=== PATIENT | female | born 1990 | race Hispanic/Latino ===

== ENCOUNTER 2018-05-16 12:43 | Emergency (ER) | payer BC ==
[2018-05-16] MEDS ORDERED: ONDANSETRON 4 MG/2 ML VIAL ONE (13:17)
[2018-05-16 13:33] LABS: Absolute Lymphocytes (CBC) 2.8 K/uL (0.7-4.9); Absolute Monocytes 0.6 K/uL (0.1-1.3); Absolute Neutrophil 5.8 K/uL (1.8-8.0); Basophils % 0.7 % (0-1.3); Eosinophils % 3.6 % (0-4.4); Hematocrit 36.2 % (36.0-45.0); Lymphocytes % 29.2 % (15.3-44.8); MCH 29.8 pg (27.0-35.0); MCV 88.5 fL (80-100); MPV 9.5 fL (7.6-11.3); Monocytes % 6.4 % (3.3-12.3); RBC Red Blood Cell Count 4.09 M/uL (3.86-4.86)
[2018-05-16 13:54] LABS: BUN Blood Urea Nitrogen 12 mg/dL (7-18); Bicarbonate 26 mmol/L (21-32); Glucose Level 95 mg/dL (74-106); Potassium 3.6 mmol/L (3.5-5.1); Sodium Level 138 mmol/L (136-145); Troponin (Emerg Dept Use Only) < 0.02 ng/mL (0.0-0.045)
--- NOTE | 2018-05-16 14:18 | RAD REPORT ---
EXAM DESCRIPTION: Andrewt Pa And Lat (2 Views)05/16/2018 1:40 pm CLINICAL HISTORY: CHEST PAIN COMPARISON: CHEST PA AND LAT 2 VIEW dated 08/07/2008 FINDINGS: The lungs appear clear of acute infiltrate. The heart is normal size IMPRESSION: No acute abnormalities displayed
[2018-05-16 15:02] LABS: Urine Blood NEGATIVE (NEG); Urine Glucose NEGATIVE (NEG); Urine Protein NEGATIVE (NEG); Urine Specific Gravity 1.015 (1.005-1.030)
--- NOTE | 2018-05-16 15:53 | EDPHYS ---
Physician Documentation [facility] Name: Jaycee Hong Age: 27 yrs Sex: Female : 1990 Arrival Date: 05/16/2018 Time: 12:46 Bed 14 Private MD: Rayshawn Chowdary ED Physician Ryan Gannon HPI: 05/16 14:44 This 27 yrs old Female presents to ER via Ambulatory with complaints of Cough. kb 14:44 The patient or guardian reports cough, that is intermittent, described as mild, with no kb sputum, difficulty breathing. Onset: The symptoms/episode began/occurred 5 day(s) ago. Severity of symptoms: At their worst the symptoms were mild, in the emergency department the symptoms are unchanged. Modifying factors: The symptoms are alleviated by nothing, the symptoms are aggravated by nothing. Associated signs and symptoms: Pertinent positives: chest pain, nausea, vomiting, Pertinent negatives: diarrhea, ear ache, fever, rhinorrhea, sore throat. The patient has not experienced similar symptoms in the past. The patient has not recently seen a physician. CAPACITOR TESTER: 12:59 LMP 04/14/2018 aa5 Historical: - Allergies: 12:58 No Known Allergies; aa5 - PMHx: 12:58 Seizures; aa5 - PSHx: 12:58 None; aa5 - Immunization history:: Adult Immunizations up to date. - Social history:: Smoking status: Patient/guardian denies using tobacco. - Ebola Screening: : No symptoms or risks identified at this time. ROS: 14:09 Constitutional: Negative for fever, chills, and weight loss, ENT: Negative for injury, kb pain, and discharge, Neck: Negative for injury, pain, and swelling, Back: Negative for injury and pain, : Negative for injury, bleeding, discharge, and swelling, MS/Extremity: Negative for injury and deformity, Skin: Negative for injury, rash, and discoloration, Neuro: Negative for headache, weakness, numbness, tingling, and seizure. 14:32 Cardiovascular: Positive for chest pain, Negative for edema, orthopnea, palpitations, kb paroxysmal nocturnal dyspnea. 14:32 Respiratory: Positive for cough, shortness of breath, Negative for dyspnea on exertion, hemoptysis, orthopnea, pleurisy, sputum production, wheezing. 15:09 Abdomen/GI: Positive for nausea and vomiting, Negative for abdominal pain, diarrhea, kb constipation, abdominal cramps, abdominal distension, anorexia. Exam: 14:41 Constitutional: This is a well developed, well nourished patient who is awake, alert, kb and in no acute distress. Head/Face: Normocephalic, atraumatic. ENT: Nares patent. No nasal discharge, no septal abnormalities noted. Tympanic membranes are normal and external auditory canals are clear. Oropharynx with no redness, swelling, or masses, exudates, or evidence of obstruction, uvula midline. Mucous membranes moist. Neck: Trachea midline, no thyromegaly or masses palpated, and no cervical lymphadenopathy. Supple, full range of motion without nuchal rigidity, or vertebral point tenderness. No Meningismus. Chest/axilla: Normal chest wall appearance and motion. Nontender with no deformity. No lesions are appreciated. Cardiovascular: Regular rate and rhythm with a normal S1 and S2. No gallops, murmurs, or rubs. Normal PMI, no JVD. No pulse deficits. Respiratory: Lungs have equal breath sounds bilaterally, clear to auscultation and percussion. No rales, rhonchi or wheezes noted. No increased work of breathing, no retractions or nasal flaring. Abdomen/GI: Soft, non-tender, with normal bowel sounds. No distension or tympany. No guarding or rebound. No evidence of tenderness throughout. Skin: Warm, dry with normal turgor. Normal color with no rashes, no lesions, and no evidence of cellulitis. MS/ Extremity: Pulses equal, no cyanosis. Neurovascular intact. Full, normal range of motion. Neuro: Awake and alert, GCS 15, oriented to person, place, time, and situation. Cranial nerves II-XII grossly intact. Motor strength 5/5 in all extremities. Sensory grossly intact. Cerebellar exam normal. Normal gait. Vital Signs: 12:58 BP 131 / 84; Pulse 85; Resp 16 S; Temp 98.6(TE); Pulse Ox 98% on R/A; Weight 86.18 kg aa5 (R); Height 5 ft. 5 in. (165.10 cm) (R); Pain 8/10; 13:30 BP 123 / 77; Pulse 84; Resp 18; Pulse Ox 98% on R/A; hj 14:36 BP 116 / 78; Pulse 68; Resp 18; Pulse Ox 99% on R/A; hj 15:30 BP 118 / 75; Pulse 75; Resp 18; Pulse Ox 99% on R/A; hj 16:14 BP 119 / 77; Pulse 76; Resp 18; Pulse Ox 100% on R/A; hj 12:58 Body Mass Index 31.62 (86.18 kg, 165.10 cm) aa5 MDM: 12:59 Patient medically screened. kb 14:44 Data reviewed: vital signs, nurses notes. Data interpreted: Pulse oximetry: on room air kb is 99 %. Interpretation: normal. Counseling: I had a detailed discussion with the patient and/or guardian regarding: the historical points, exam findings, and any diagnostic results supporting the discharge/admit diagnosis, lab results, radiology results, the need for outpatient follow up, a family practitioner, to return to the emergency department if symptoms worsen or persist or if there are any questions or concerns that arise at home. 05/16 13:00 Order name: CBC with Diff; Complete Time: 13:40 kb 05/16 13:00 Order name: Basic Metabolic Panel; Complete Time: 14:02 kb 05/16 13:00 Order name: Troponin (emerg Dept Use Only); Complete Time: 14:02 kb 05/16 14:28 Order name: Test, Serum; Complete Time: 15:52 hj 05/16 14:29 Order name: Urine Dipstick--Ancillary (enter results); Complete Time: 15:06 eb 05/16 14:29 Order name: Urine --Ancillary (enter results); Complete Time: 15:06 eb 05/16 14:45 Order name: D-Dimer; Complete Time: 15:52 kb 05/16 13:00 Order name: Chest Pa And Lat (2 Views) XRAY; Complete Time: 14:29 kb 05/16 13:00 Order name: EKG; Complete Time: 13:01 kb 05/16 13:00 Order name: EKG - Nurse/Tech; Complete Time: 13:32 kb 05/16 13:00 Order name: Urine Test (obtain specimen); Complete Time: 14:27 kb 05/16 13:00 Order name: Urine Dipstick-Ancillary (obtain specimen); Complete Time: 14:27 kb Administered Medications: 13:00 Drug: Zofran 4 mg Route: IVP; Site: left antecubital; 13:32 Follow up: Response: No adverse reaction hj Disposition: 05/16/18 15:52 Discharged to Home. Impression: Cough, Chest pain, unspecified. - Condition is Stable. - Medication Reconciliation Form, Thank You Letter, Antibiotic Education, Prescription Opioid Use form. - Follow up: Emergency Department; When: As needed; Reason: Worsening of condition. Follow up: Private Physician; When: 2 - 3 days; Reason: Recheck today's complaints, Continuance of care, Re-evaluation by your physician. Addendum: 05/20/2018 07:08 Co-signature as Attending Physician, Ryan Gannon MD I agree with the assessment and k dr plan of care. Signatures: Dispatcher [employer] EDMS Cornelia Mckoy, SUPERVISOR [employer]TING [employer]ING-C SUPERVISOR C[employer]TING [employer]ING-Ckb Ryan Gannon MD MD [facility] Barb Pitt RN RN aa5 Estrella Garay RN RN Luis Enrique Carter RN RN Corrections: (The following items were deleted from the chart) 05/16 14:32 14:09 Constitutional: Negative for fever, chills, and weight loss, kb kb 15:09 14:09 Constitutional: Negative for fever, chills, and weight loss, ENT: Negative for kb injury, pain, and discharge, Neck: Negative for injury, pain, and swelling, Abdomen/GI: Negative for abdominal pain, nausea, vomiting, diarrhea, and constipation, Back: Negative for injury and pain, : Negative for injury, bleeding, discharge, and swelling, MS/Extremity: Negative for injury and deformity, Skin: Negative for injury, rash, and discoloration, Neuro: Negative for headache, weakness, numbness, tingling, and seizure, kb 15:09 15:09 Abdomen/GI: Positive for nausea and vomiting, kb kb 15:10 14:44 Associated signs and symptoms: Pertinent positives: chest pain, Pertinent kb negatives: diarrhea, ear ache, fever, nausea, rhinorrhea, sore throat, vomiting, kb 16:32 15:52 05/16/2018 15:52 Discharged to Home. Impression: Cough; Chest pain, unspecified. hj Condition is Stable. Forms are Medication Reconciliation Form, Thank You Letter, Antibiotic Education, Prescription Opioid Use. Follow up: Emergency Department; When: As needed; Reason: Worsening of condition. Follow up: Private Physician; When: 2 - 3 days; Reason: Recheck today's complaints, Continuance of care, Re-evaluation by your physician. kb
--- NOTE | 2018-05-16 15:53 | ER ---
Nurse's Notes [facility] Name: Jaycee Hong Age: 27 yrs Sex: Female : 1990 Arrival Date: 05/16/2018 Time: 12:46 Bed 14 Private MD: Rayshawn Chowdary Diagnosis: Cough;Chest pain, unspecified Presentation: 05/16 12:56 Presenting complaint: Patient states: chest discomfort and SOB that began Thursday. Pt aa5 also reports cough that began this morning. Transition of care: patient was not received from another setting of care. Onset of symptoms was April 2018. Risk Assessment: Do you want to hurt yourself or someone else? Patient reports no desire to harm self or others. Initial Sepsis Screen: Does the patient meet any 2 criteria? No. Patient's initial sepsis screen is negative. Does the patient have a suspected source of infection? No. Patient's initial sepsis screen is negative. Care prior to arrival: None. 12:56 Method Of Arrival: Ambulatory aa5 12:56 Acuity: TELLO 3 aa5 Triage Assessment: 12:57 General: Appears in no apparent distress. uncomfortable, Behavior is calm, cooperative, hj appropriate for age. Pain: Complains of pain in chest Pain currently is 7 out of 10 on a pain scale. 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 - Social history:: Smoking status: Patient/guardian denies using tobacco. - Ebola Screening: : No symptoms or risks identified at this time. Screenin:57 Abuse screen: Denies threats or abuse. Denies injuries from another. Nutritional hj screening: No deficits noted. Tuberculosis screening: No symptoms or risk factors identified. 12:57 Fall Risk None identified. hj Assessment: 12:57 General: Appears in no apparent distress. uncomfortable, Behavior is calm, cooperative, hj appropriate for age. Pain: Complains of pain in chest Pain radiates to back Pain currently is 7 out of 10 on a pain scale. Neuro: Level of Consciousness is awake, alert, obeys commands, Oriented to person, place, time, situation, Appropriate for age. Cardiovascular: Capillary refill < 3 seconds Patient's skin is warm and dry. Respiratory: Airway is patent Respiratory effort is even, unlabored, Respiratory pattern is regular, symmetrical. GI: No signs and/or symptoms were reported involving the gastrointestinal system. : No signs and/or symptoms were reported regarding the genitourinary system. EENT: No signs and/or symptoms were reported regarding the EENT system. Derm: No signs and/or symptoms reported regarding the dermatologic system. 13:33 Reassessment: wheeled to Xray;. hj 13:46 Reassessment: wheeled back to room;. hj 14:35 Reassessment: Patient and/or family updated on plan of care and expected duration. Pain hj level reassessed. Patient is alert, oriented x 3, equal unlabored respirations, skin warm/dry/pink. urine specific gravity- 1.015; serum preg ordered;. 15:30 Reassessment: Patient and/or family updated on plan of care and expected duration. Pain hj level reassessed. Patient is alert, oriented x 3, equal unlabored respirations, skin warm/dry/pink. awaiting D dimer result;. 16:13 Reassessment: Patient and/or family updated on plan of care and expected duration. Pain hj level reassessed. Patient is alert, oriented x 3, equal unlabored respirations, skin warm/dry/pink. awaiting provider to discuss POC:. Vital Signs: 12:58 BP 131 / 84; Pulse 85; Resp 16 S; Temp 98.6(TE); Pulse Ox 98% on R/A; Weight 86.18 kg aa5 (R); Height 5 ft. 5 in. (165.10 cm) (R); Pain 8/10; 13:30 BP 123 / 77; Pulse 84; Resp 18; Pulse Ox 98% on R/A; hj 14:36 BP 116 / 78; Pulse 68; Resp 18; Pulse Ox 99% on R/A; hj 15:30 BP 118 / 75; Pulse 75; Resp 18; Pulse Ox 99% on R/A; hj 16:14 BP 119 / 77; Pulse 76; Resp 18; Pulse Ox 100% on R/A; hj 12:58 Body Mass Index 31.62 (86.18 kg, 165.10 cm) aa5 ED Course: 12:46 Patient arrived in ED. mr 12:46 Rayshawn Chowdary MD is Private Physician. mr 12:46 Corn[facility]ckoy [facility]C [facility] kb 12:46 Ryan Gannon MD is Attending Physician. kb 12:56 Arm band placed on. aa5 12:57 Triage completed. aa5 12:57 Patient has correct armband on for positive identification. Placed in gown. Bed in low hj position. Call light in reach. Side rails up X 1. Adult w/ patient. 13:09 Luis Enrique Carter, RN is Primary Nurse. hj 13:30 Patient moved to radiology via wheelchair. jb2 13:38 X-ray completed. Patient tolerated procedure well. jb2 13:38 Chest Pa And Lat (2 Views) XRAY In Process Unspecified. EDMS 13:40 Patient moved back from radiology. jb2 14:22 Initial lab(s) drawn, by me, sent to lab. Inserted saline lock: 22 gauge in left hj antecubital area, using aseptic technique. Blood collected. 14:32 Test, Serum Sent. hj 16:28 No provider procedures requiring assistance completed. IV discontinued, intact, hj bleeding controlled, No redness/swelling at site. Pressure dressing applied. Administered Medications: 13:00 Drug: Zofran 4 mg Route: IVP; Site: left antecubital; 13:32 Follow up: Response: No adverse reaction hj Outcome: 15:52 Discharge ordered by MD. kb 16:29 Discharged to home ambulatory, with family. hj 16:29 Condition: stable 16:29 Discharge instructions given to patient, family, Instructed on discharge instructions, follow up and referral plans. Demonstrated understanding of instructions, follow-up care. 16:32 Patient left the ED. hj Signatures: Dispatcher [employer] EDMS Cornelia Mckoy FNP-C FNP-Edilberto DialloaErika Teto Raza jb2 Barb Pitt, RN RN aa Estrella Garay RN RN Luis Enrique Carter, SUMMER RN
--- NOTE | 2018-05-17 07:56 | EKG ---
Test Date: 2018-05-16 Test Time: 13:30:43 Motorcycle Sales Associate: MAU MEASUREMENT RESULTS: Intervals: Rate: 82 IA: 132 QRSD: 86 QT: 402 QTc: 469 [place]: P: 37 IA: 132 QRS: 45 T: 23 INTERPRETIVE STATEMENTS: Normal sinus rhythm Normal ECG No previous ECG available for comparison Electronically Signed On 05-17-18 07:54:48 CDT by Sj Benton
== END 2018-05-16 16:32 | disposition home or self-care (01) ==
LOC: ER 12:43
DX: R07.9 Chest pain, unspecified (principal)
CPT/HCPCS: 36415; 71046; 80048; 81003; 81025; 84484; 84703; 85025; 85379; 93005; 96374; 99284; J2405

== ENCOUNTER 2019-01-30 14:02 | Emergency (ER) | payer BC ==
[2019-01-30 15:34] LABS: Absolute Lymphocytes (CBC) 2.5 K/uL (0.7-4.9); Absolute Monocytes 0.6 K/uL (0.1-1.3); Absolute Neutrophil 7.8 K/uL (1.8-8.0); Basophils % 0.7 % (0-1.3); Eosinophils % 1.8 % (0-4.4); Hematocrit 36.2 % (36.0-45.0); Lymphocytes % 22.3 % (15.3-44.8); MPV 9.9 fL (7.6-11.3); Monocytes % 5.5 % (3.3-12.3); RBC Red Blood Cell Count 4.14 M/uL (3.86-4.86)
[2019-01-30] MEDS ORDERED: NA CHLORIDE 0.9% 1,000 ML ONE (15:34)
[2019-01-30 15:35] LABS: Urine Bacteria <20 /HPF (<20); Urine Culture Reflex Order NOT NEEDED; Urine RBC <5 /HPF (NONE SEEN)
[2019-01-30 15:43] LABS: BUN Blood Urea Nitrogen 7 mg/dL (7-18); Bicarbonate 26 mmol/L (21-32); Glucose Level 78 mg/dL (74-106); Potassium 3.5 mmol/L (3.5-5.1); Sodium Level 137 mmol/L (136-145)
--- NOTE | 2019-01-30 16:16 | RAD REPORT ---
EXAM DESCRIPTION: US - OB Limited - 01/30/2019 3:51 pm CLINICAL HISTORY: ABD CRAMPING, age. COMPARISON: No comparisons FINDINGS: A limited obstetrical sonogram was requested. A single cephalic presenting gestation is identified. Heart rate normal. [place]-rump length measures 8.5 cm, correlating with estimated gestational age of 14 weeks 3 days. FARHAD 07/28/2019. The placenta is grade 0, posterior in location. Partial placenta previa is possible. Amniotic fluid volume is normal. The maternal adnexa show no unusual finding. IMPRESSION: Single, live, 14 weeks 3 days single fetus is noted. Partial placenta previa is suspected
--- NOTE | 2019-01-30 16:43 | EDPHYS ---
Physician Documentation [facility] Name: Jaycee Hong Age: 28 yrs Sex: Female : 1990 Arrival Date: 01/30/2019 Time: 14:05 Bed 25 Private MD: ED Physician Brent Longoria HPI: 01/30 16:38 This 28 yrs old Female presents to ER via Ambulatory with complaints of gs Vaginal Bleeding, Abdominal Cramping. 16:38 The patient presents with urinary symptoms, hematuria. Onset: The symptoms/episode gs began/occurred yesterday. Modifying factors: The symptoms are alleviated by nothing, the symptoms are aggravated by nothing. Associated signs and symptoms: Pertinent positives: cramping. Severity of symptoms: At their worst the symptoms were moderate, in the emergency department the symptoms are unchanged. The patient has not experienced similar symptoms in the past, 14 WEEK EGA. TOW FEEDER: 14:46 Verified ph Historical: - Allergies: 14:47 No Known Allergies; ph - PMHx: 14:47 Seizures; ph - PSHx: 14:47 None; ph - Immunization history:: Adult Immunizations up to date. - Social history:: Smoking status: Patient/guardian denies using tobacco. - Ebola Screening: : No symptoms or risks identified at this time. ROS: 16:38 All other systems are negative. gs Exam: 16:38 Head/Face: Normocephalic, atraumatic. Eyes: Pupils equal round and reactive to light, gs extra-ocular motions intact. Lids and lashes normal. Conjunctiva and sclera are non-icteric and not injected. Cornea within normal limits. Periorbital areas with no swelling, redness, or edema. ENT: Nares patent. No nasal discharge, no septal abnormalities noted. Tympanic membranes are normal and external auditory canals are clear. Oropharynx with no redness, swelling, or masses, exudates, or evidence of obstruction, uvula midline. Mucous membranes moist. Neck: Trachea midline, no thyromegaly or masses palpated, and no cervical lymphadenopathy. Supple, full range of motion without nuchal rigidity, or vertebral point tenderness. No Meningismus. Chest/axilla: Normal chest wall appearance and motion. Nontender with no deformity. No lesions are appreciated. Cardiovascular: Regular rate and rhythm with a normal S1 and S2. No gallops, murmurs, or rubs. Normal PMI, no JVD. No pulse deficits. Respiratory: Lungs have equal breath sounds bilaterally, clear to auscultation and percussion. No rales, rhonchi or wheezes noted. No increased work of breathing, no retractions or nasal flaring. Back: No spinal tenderness. No costovertebral tenderness. Full range of motion. Skin: Warm, dry with normal turgor. Normal color with no rashes, no lesions, and no evidence of cellulitis. MS/ Extremity: Pulses equal, no cyanosis. Neurovascular intact. Full, normal range of motion. Neuro: Awake and alert, GCS 15, oriented to person, place, time, and situation. Cranial nerves II-XII grossly intact. Motor strength 5/5 in all extremities. Sensory grossly intact. Cerebellar exam normal. Normal gait. 16:38 Constitutional: The patient appears alert, awake. 16:38 Abdomen/GI: Inspection: gravid appearance, is noted, Palpation: abdomen is soft and non-tender. Vital Signs: 14:46 Resp 18; Temp 97.8; Weight 83.91 kg; Height 5 ft. 5 in. (165.10 cm); Pain 0/10; ph 15:24 BP 117 / 73; Pulse 82; Resp 16; Pulse Ox 98% on R/A; la1 16:00 BP 125 / 70; Pulse 90; Resp 17; Pulse Ox 100% ; rv 16:55 BP 122 / 77; Pulse 81; Resp 16; Pulse Ox 97% on R/A; la1 14:46 Body Mass Index 30.79 (83.91 kg, 165.10 cm) ph MDM: 14:52 Patient medically screened. gs 16:38 Differential diagnosis: nonspecific abdominal pain, urinary tract infection. Data reviewed: vital signs, nurses notes. Counseling: I had a detailed discussion with the patient and/or guardian regarding: the historical points, exam findings, and any diagnostic results supporting the discharge/admit diagnosis, the need for outpatient follow up. Response to treatment: the patient's symptoms have markedly improved after treatment, and as a result, I will discharge patient. 01/30 14:52 Order name: CBC with Diff; Complete Time: 16:38 01/30 14:52 Order name: Basic Metabolic Panel; Complete Time: 16:38 01/30 14:52 Order name: Urine Microscopic Only; Complete Time: 16:38 01/30 14:55 Order name: Urine Dipstick--Ancillary (enter results) 01/30 14:55 Order name: Urine --Ancillary (enter results) 01/30 14:52 Order name: US OB Limited; Complete Time: 16:38 01/30 14:52 Order name: Urine Dipstick-Ancillary (obtain specimen); Complete Time: 14:57 01/30 15:17 Order name: ABO/RH typing; Complete Time: 16:38 EDMS Administered Medications: 15:23 Drug: NS 0.9% 1000 ml Route: IV; Rate: 1 bolus; Site: left antecubital; la1 16:55 Follow up: IV Status: Completed infusion la1 Disposition: 01/30/19 16:42 Discharged to Home. Impression: Lower abdominal pain, unspecified, related conditions, unspecified. - Condition is Stable. - Discharge Instructions: Abdominal Pain During , [id number]. - Medication Reconciliation Form, Thank You Letter, Antibiotic Education, Prescription Opioid Use form. - Follow up: Private Physician; When: 2 - 3 days; Reason: Re-evaluation by your physician. Signatures: Dispatcher [employer] EDMS Darek Howard RN RN la1 Kaur Ceballos RN RN LongoriaBrent pratt MD MD Corrections: (The following items were deleted from the chart) 16:42 16:42 01/30/2019 16:42 Discharged to Home. Impression: Lower abdominal pain, gs unspecified. Condition is Stable. Forms are Medication Reconciliation Form, Thank You Letter, Antibiotic Education, Prescription Opioid Use. Follow up: Private Physician; When: 2 - 3 days; Reason: Re-evaluation by your physician. 17:01 16:42 01/30/2019 16:42 Discharged to Home. Impression: Lower abdominal pain, la1 unspecified; related conditions, unspecified. Condition is Stable. Forms are Medication Reconciliation Form, Thank You Letter, Antibiotic Education, Prescription Opioid Use. Follow up: Private Physician; When: 2 - 3 days; Reason: Re-evaluation by your physician.
--- NOTE | 2019-01-30 16:43 | ER ---
Nurse's Notes [facility] Name: Jaycee Hong Age: 28 yrs Sex: Female : 1990 Arrival Date: 01/30/2019 Time: 14:05 Bed 25 Private MD: Diagnosis: Lower abdominal pain, unspecified; related conditions, unspecified Presentation: 01/30 14:45 Presenting complaint: Patient states: Blood in urine and suprapubic cramping, reports ph that she is approx 14 weeks , denies vaginal bleeding, also denies fever, N/V or burning w/ uyrination. Transition of care: patient was not received from another setting of care. Onset of symptoms was January 30, 2019. Risk Assessment: Do you want to hurt yourself or someone else? Patient reports no desire to harm self or others. Initial Sepsis Screen: Does the patient meet any 2 criteria? No. Patient's initial sepsis screen is negative. Does the patient have a suspected source of infection? Yes: Dysuria/Frequency/Urgency/UTI. Care prior to arrival: None. 14:45 Method Of Arrival: Ambulatory ph 14:45 Acuity: TELLO 3 ph CEMENT HANDLER: 14:46 Verified ph Historical: - Allergies: 14:47 No Known Allergies; ph - PMHx: 14:47 Seizures; ph - PSHx: 14:47 None; ph - Immunization history:: Adult Immunizations up to date. - Social history:: Smoking status: Patient/guardian denies using tobacco. - Ebola Screening: : No symptoms or risks identified at this time. Screenin:33 Abuse screen: Denies threats or abuse. Nutritional screening: No deficits noted. la1 Tuberculosis screening: No symptoms or risk factors identified. Fall Risk None identified. Assessment: 15:32 General: Appears in no apparent distress. Behavior is calm, cooperative. Pain: la1 Complains of pain in abdomen. Neuro: Level of Consciousness is awake, alert, obeys commands, Oriented to person, place, time, situation. Cardiovascular: Capillary refill < 3 seconds Patient's skin is warm and dry. Respiratory: Airway is patent Respiratory effort is even, unlabored, Respiratory pattern is regular, symmetrical. GI: Abdomen is round non-distended. : No signs and/or symptoms were reported regarding the genitourinary system. Urine is clear, Reports vaginal bleeding that is bright red, light flow, spotty. 16:55 Reassessment: Patient appears in no apparent distress at this time. No changes from la1 previously documented assessment. Patient and/or family updated on plan of care and expected duration. Pain level reassessed. Patient is alert, oriented x 3, equal unlabored respirations, skin warm/dry/pink. Vital Signs: 14:46 Resp 18; Temp 97.8; Weight 83.91 kg; Height 5 ft. 5 in. (165.10 cm); Pain 0/10; ph 15:24 BP 117 / 73; Pulse 82; Resp 16; Pulse Ox 98% on R/A; la1 16:00 BP 125 / 70; Pulse 90; Resp 17; Pulse Ox 100% ; rv 16:55 BP 122 / 77; Pulse 81; Resp 16; Pulse Ox 97% on R/A; la1 14:46 Body Mass Index 30.79 (83.91 kg, 165.10 cm) ph ED Course: 14:05 Patient arrived in ED. tw3 14:40 Brent Longoria MD is Attending Physician. gs 14:44 Darek Hwoard, SUMMER is Primary Nurse. la1 14:46 Triage completed. ph 14:47 Arm band placed on Patient placed in an exam room, on a stretcher. ph 15:32 No provider procedures requiring assistance completed. Inserted saline lock: 20 gauge la1 in left antecubital area, using aseptic technique. Blood collected. 15:34 Call light in reach. la1 15:50 US OB Limited In Process Unspecified. EDMS 15:55 Ultrasound completed. Patient tolerated well. sg3 17:01 IV discontinued, intact, bleeding controlled, No redness/swelling at site. Pressure la1 dressing applied. Administered Medications: 15:23 Drug: NS 0.9% 1000 ml Route: IV; Rate: 1 bolus; Site: left antecubital; la1 16:55 Follow up: IV Status: Completed infusion la1 Outcome: 16:42 Discharge ordered by . gs 17:01 Discharged to home ambulatory. la1 17:01 Condition: stable 17:01 Discharge instructions given to patient, Instructed on discharge instructions, follow up and referral plans. medication usage, Demonstrated understanding of instructions, follow-up care. 17:01 Patient left the ED. la1 Signatures: Dispatcher [employer] Darek Fairbanks RN RN la1 Kuar Ceballos RN RN klaudia Burger, Kayla tw3 Brent Longoria MD MD Shelley Cantu [facility] [place] Pedro Pablo Diaz RN RN rv
[2019-01-30 17:13] LABS: Urine Blood NEGATIVE (NEG); Urine Glucose NEGATIVE (NEG); Urine Protein NEGATIVE (NEG); Urine Specific Gravity 1.015 (1.005-1.030)
== END 2019-01-30 17:01 | disposition home or self-care (01) ==
LOC: ER 14:02
DX: O26.891 Other specified pregnancy related conditions, first trimester (principal); Z3A.14 14 weeks gestation of pregnancy
CPT/HCPCS: 36415; 76815; 80048; 81003; 81015; 81025; 85025; 86900; 86901; 96360; 96361; 99284; J7030

== ENCOUNTER 2019-07-18 10:00 | Inpatient (IN) | payer BC ==
[2019-07-18 10:41] LABS: Basophils % 0.7 % (0-1.3); Hematocrit 30.3 % (36.0-45.0); Lymphocytes % 22.8 % (15.3-44.8); MPV 11.4 fL (7.6-11.3); RBC Red Blood Cell Count 3.64 M/uL (3.86-4.86)
[2019-07-18 10:43] LABS: Urine Appearance CLEAR; Urine Bilirubin NEGATIVE (NEG); Urine Blood NEGATIVE (NEG); Urine Color YELLOW; Urine Glucose NEGATIVE (NEG); Urine Protein 2+ (NEG); Urine Specific Gravity 1.025 (1.005-1.030)
[2019-07-18 10:44] LABS: Protime INR 0.96
[2019-07-18 11:17] LABS: Urine Bacteria 20-50 /HPF (<20); Urine Culture Reflex Order NOT NEEDED; Urine RBC <5 /HPF (NONE SEEN)
[2019-07-18 11:18] LABS: ALT/SGPT 24 U/L (12-78); AST/SGOT 23 U/L (15-37); Albumin 2.2 g/dL (3.4-5.0); Alkaline Phosphatase 217 U/L (45-117); BUN Blood Urea Nitrogen 10 mg/dL (7-18); Bicarbonate 23 mmol/L (21-32); Bilirubin Direct < 0.1 mg/dL (0-0.2); Bilirubin Total 0.2 mg/dL (0.2-1.0); Calcium Oxalate Crystals- Ur FEW (NONE SEEN); Glucose Level 91 mg/dL (74-106); Potassium 3.9 mmol/L (3.5-5.1); Protein, Total 6.2 g/dL (6.4-8.2); Sodium Level 139 mmol/L (136-145); Uric Acid 5.2 mg/dL (2.6-6.0)
[2019-07-18] MEDS ORDERED: Ringers Lactate 1,000 ML IV PRN (12:21)
[2019-07-18] MEDS ORDERED: PROMETHAZINE 25 MG/ML VIAL IM PRN (12:21)
[2019-07-18] MEDS ORDERED: CARBOPROST TROME 250 MCG/ML IM PRN (12:21)
[2019-07-18] MEDS ORDERED: BUTORPHANOL 1 MG/ML INJ IV PRN (12:21)
[2019-07-18] MEDS ORDERED: Ringers Lactate 1,000 ML IV SCH (13:00)
[2019-07-18] MEDS ORDERED: OXYTOCIN/LR 20 UNIT/1,000 ML BAG IV SCH ×2 (13:00→16:00)
[2019-07-18] MEDS ORDERED: miSOPROStoL 100 MCG TAB VAG SCH (13:00)
[2019-07-18] MEDS ORDERED: miSOPROStoL 100 MCG TAB PO SCH (13:00)
[2019-07-18] MEDS ORDERED: MAGNESIUM SULF/STERILE WATER 1,000 ML IV SCH (13:00)
[2019-07-18 14:48] VITALS: BMI 36.9
[2019-07-18] MEDS ORDERED: ZOLPIDEM TARTRATE 10 MG TABLET PO PRN (15:40)
[2019-07-18] MEDS ORDERED: ACETAMINOPHEN 500 MG TAB PO PRN (15:40)
[2019-07-18] MEDS ORDERED: BUTORPHANOL 1 MG/ML INJ IV ONE (15:45)
--- NOTE | 2019-07-18 16:33 | PREOPHP ---
Date of Admission: 07/18/2019 A 28-year-old primigravida, 38 weeks 3 days, noted to have headaches. Blood pressure in the office 1 40/70. +2 protein on catheterized urine specimen here at Labor and Delivery. Brisk reflexes and +1 edema. Patient has preeclampsia. We will start Cytotec induction, 50 mcg inserted. We will use dos e x3 if needed then after cervical ripening accomplished, start with Pitocin. We will start her on m agnesium sulfate once contractions have become regular and fairly uncomfortable. Beta strep test is negative. Full admission talk and PIH talk with patient and . HARSH/SPRING Voice ID: [id number]
[2019-07-18] MEDS ORDERED: INFLUENZA VACCINE (for 3y+) 0.5 ML DOSE IMVAC ONE (19:00)
--- NOTE | 2019-07-18 20:39 | PN ---
Patient is responding quite well to the Cytotec, christina regularly. Baby looks good. The magnes ium sulfate has been started. We will get a level at 9 o'clock. She has been on antiseizure medicin es the entire in conjunction and consultation with her neurologist. Will take her dose ton ight with a sip of water like she normally does. Full discussion again she knows she has a sleeping pill at 9 p.m. if she wishes to take it, pain medicines if she has any pain from the labor, and of co jolene Tylenol she says for simple headache which seems to be improving at this point. We will continu e with the Cytotec unless rupture of membranes occurs and then switch over to Pitocin if and when mem brane rupture occurs. We will attempt to rupture membranes tomorrow morning if they have not already ruptured by that time. Patient knows that delivery will take place sometime tomorrow unless somethi ng happens during the night. HARSH/SPRING Voice ID: [id number] Report ID: [id number]
[2019-07-18 23:01] LABS: RPR (Rapid Plasma Reagin) NON-REACT (NON-REACT)
[2019-07-19] MEDS ORDERED: FENTANYL CITR 100 MCG/2 ML IV ONE (09:03)
[2019-07-19] MEDS ORDERED: ROPIVACAINE HCL 0.2% 20ML AMP IV ONE (09:03)
[2019-07-19] MEDS ORDERED: ROPIVACAINE HCL 100 ML IV PRN (09:03)
--- NOTE | 2019-07-19 12:25 | PN ---
Patient has now progressed to 3.5 cm, 70% effaced, vertex still -1 to 0 station. She is doing pelvic rocks. She had Stadol 1 mg IV, Phenergan 25 mg IM. At approximately 6 a.m., requesting 1 dose of S tadol IV. We will hold the Phenergan at approximately 4 cm. Patient states she will probably want t he epidural. We will check her again in an hour. HARSH/SPRING Voice ID: [id number] Report ID: [id number]
[2019-07-19] MEDS ORDERED: LIDOCAINE 1% 20 ML MDV ONE (12:38)
[2019-07-19] MEDS ORDERED: CARBOPROST TROME 250 MCG/ML IM ONE (12:40)
[2019-07-19] MEDS ORDERED: CARBOPROST TROME 250 MCG/ML IM PRN (13:18)
[2019-07-19] MEDS ORDERED: Oxycodone HCl/Acetaminophen 1 TAB TAB PO PRN (13:18)
[2019-07-19] MEDS ORDERED: BISACODYL 10 MG RECTAL SUPP RECT PRN (13:18)
[2019-07-19] MEDS ORDERED: IBUPROFEN 200 MG TAB PO PRN (13:18)
[2019-07-19] MEDS ORDERED: ACETAMINOPHEN 500 MG TAB PO PRN (13:18)
[2019-07-19] MEDS ORDERED: DOCUSATE NA/SENNA CONC 1 TAB PO PRN (13:18)
[2019-07-19] MEDS ORDERED: DIPHENHYDRAMINE 25 MG TAB/CAP PO PRN (13:18)
[2019-07-19] MEDS ORDERED: OXYTOCIN/LR 20 UNIT/1,000 ML BAG IV SCH (14:00)
[2019-07-19] MEDS: Oxycodone HCl/Acetaminophen 1 TAB TAB PO PRN ×2 (15:05→22:58)
--- NOTE | 2019-07-19 15:31 | PN ---
Patient had 350 mcg Cytotec inserted every 6 hours. At 6 a.m., experienced spontaneous rupture of me mbranes, clear fluid. She has been started on oxytocin at approximately 4 milliunits an hour. She i s now 3 cm, 70% effaced, vertex, -1 station. FHTs normal, reactive. Vital signs are good. Blood pr essures have remained have gotten actually slightly better. Her magnesium sulfate level within the t herapeutic range. She has had 1 dose of Stadol. Baby is occiput posterior at this time. She is hav ing back discomfort. She will begin pelvic rocking. When patient progresses to 4-5 cm, she probably will request epidural, but is doing well now with breathing techniques. Full discussion. We antici doan more rapid progress once the baby rotates and once she gets to about 4-5 cm, but seems to be doi ng quite well at this point. HARSH/SPRING Voice ID: [id number] Report ID: [id number]
[2019-07-19] MEDS ORDERED: PHENOBARBITAL 32.4 MG TABLET PO SCH (16:00)
--- NOTE | 2019-07-19 17:07 | PN ---
Subjective: Patient is complete and pushing. Her right leg is very numb, so we cut down the epidura l maintenance from 10 to 8. Baby looks good. She is a very good pusher even though she is considera ceci numb at this point. If she cannot affect delivery in the next 30 minutes, we will probably cut t he epidural back a little bit more. Baby is trying to rotate each time she pushes, but has not rotat ed completely yet. When it does, I think we will get delivery fairly quickly thereafter. HARSH/SPRING Voice ID: [id number] Report ID: [id number]
[2019-07-19] MEDS ORDERED: Ringers Lactate 1,000 ML IV ONE (17:20)
--- NOTE | 2019-07-20 00:01 | OP ---
Surgeon: Delfino Ernst MD History: A 28-year-old primigravida, 38 weeks and 3 days. Yesterday noted to have pre-eclampsia, se nt to Labor and Delivery, started on Cytotec. After thorough discussion, three 50 mcg tablets were i nserted every 6 hours. After the third tablet, she experienced spontaneous rupture of membranes, kishore ar fluid approximately 6 a.m. Stadol initially 1 mg, then epidural anesthesia when she got to be 6 cm . Magnesium sulfate was started last night. Therapeutic level was maintained. Garcia catheter was d iscontinued and the magnesium sulfate was discontinued during the second stage when she pushed for ap proximately 45 minutes resulting in spontaneous vaginal delivery of an 8 pounds 8 ounce male infant, Apgars 9 and 9. Second degree midline laceration and a first-degree right labia minora laceration al l sutured with 2-0 chromic. Schultze delivery of the placenta, which is inspected, noted be quite la rge but intact. Estimated blood loss 350 mL. Garcia catheter was reinserted. Magnesium sulfate will be started again. Patient has been on lamotrigine during the and during several years for seizure activity. She is taking 2 pills a day and will be allowed to take her own medications. We will continue the magnesium sulfate until she begins to diurese and at that point either add phenobar bital or just keep her on the antiseizure medicine that she is on now. Doing quite well at this poin t. Beta strep negative. Rh positive, immune to Rubella. Final Diagnoses: Intrauterine gestation, 38 weeks and 3 days. Preeclampsia diagnosed. Cytotec for cervical ripening. Labor induction. Vaginal delivery. Magnesium sulfate administered. HARSH/LUISL Voice ID: [id number] Report ID: [id number]
[2019-07-20 16:07] VITALS: BP 137/69; TEMP 97.1
[2019-07-20] MEDS ORDERED: INFLUENZA VACCINE (for 3y+) 0.5 ML DOSE IMVAC ONE (17:11)
[2019-07-20] MEDS ORDERED: Tdap (Diph,Pertuss(Acell),Tet Vac) 0.5 ML SYR IMVAC ONE (17:12)
[2019-07-21 02:35] LABS: HBsAG Nonreactive (Nonreactive)
--- NOTE | 2019-07-21 03:42 | DS ---
Date of Discharge: 07/20/2019 History: A 28-year-old primigravida, 38 weeks 4 days, diagnosed with preeclampsia, also has a histor y of seizures which she is on medications throughout the entire in consultation with her ne urologist. Cytotec 50 mcg was used x3, this resulted in good cervical ripening, then Pitocin augment ation was performed. Rupture of membranes, clear fluid, patient went to an active labor pattern. Webster bsequently received epidural anesthesia, which gave good effect. Second stage of 45 minutes. Sponta neous vaginal delivery of an 8-pound 8-ounce male , Apgars 9 and 9. First degree laceration, r ight labia minora, small second degree midline posterior fourchette. All sutured with 2-0 chromic. Schultze delivery of the placenta, which was noted to be larger than normal, but otherwise normal. E stimated blood loss 350 mL. Patient had received magnesium sulfate during the labor. is afebrile, ambulating and voiding. Lochia is normal. She will be dismissed later today. To report b ack to my office in 6 weeks for followup, to report any temperature elevation of 100 degrees or great er, severe pain, heavy bleeding, or any other type of abnormalities. She is dismissed with phenobarb ital to be taken twice a day in addition to her anticonvulsant medicines she is already on and she wi ll consult with her neurologist to see if they wish anything different. Final Diagnoses: Intrauterine gestation, 38 weeks 4 days. History of seizures prior to the pregnanc y. Preeclampsia, now resolving. Vaginal delivery, epidural anesthesia. HARSH/SPRING Voice ID: [id number] Report ID: [id number]
== END 2019-07-20 18:00 | disposition home or self-care (01) | DRG 806 ==
LOC: L&D 10:00 → 2ND-WC 11:45
PROVIDERS: ADMIT Specialist; ATTEND Specialist
PROC: 3E0P7VZ Introduction of Hormone into Female Reproductive, Via Natural or Artificial Opening (ICD-10-PCS; 2019-07-18)
PROC: 10E0XZZ Delivery of Products of Conception, External Approach (ICD-10-PCS; principal; 2019-07-19)
PROC: 0KQM0ZZ Repair Perineum Muscle, Open Approach (ICD-10-PCS; 2019-07-19)
DX: O70.0 First degree perineal laceration during delivery (principal); O99.354 Diseases of the nervous system complicating childbirth; Z37.0 Single live birth; O14.94 Unspecified pre-eclampsia, complicating childbirth; Z3A.38 38 weeks gestation of pregnancy; Z23 Encounter for immunization; G40.909 Epilepsy, unspecified, not intractable, without status epilepticus
CPT/HCPCS: 36415; 80048; 80076; 81001; 83735; 84550; 85025; 85610; 85730; 86592; 86901; 87340; 90471; 90715; J0595; J2550; J2590; J2795; J3475; J7120; Q2035